=== PATIENT | female | born 1995 | race African-American/Black ===

== ENCOUNTER 2021-07-26 03:20 | Emergency (ER) | payer MEDICAID ==
[~2021-07-26] VITALS: Ht 167.6 cm; Wt 75.0 kg
[2021-07-26 04:06] LABS: BASOPHILS % 0.9 % (0.0-2.0); EOSINOPHILS % 4.1 % (0.0-5.0); HEMATOCRIT. 37.5 % (36.0-48.0); LYMPHOCYTES % 15.1 % (20.0-50.0); MEAN CORPUSCULAR HEMOGLOBIN 31.7 pg (28.0-32.0); MEAN CORPUSCULAR VOLUME 91.6 fL (81.0-99.0); MEAN PLATELET VOLUME 11.5 fl (7.4-10.4); MONOCYTES % 7.6 % (2.0-8.0); NEUTROPHILS % 72.3 % (40.0-76.0); PLATELET 165 x1000/uL (130-400); RED BLOOD CELL COUNT 4.09 mill/uL (4.2-5.4); RED CELL DISTRIBUTION WIDTH 14.2 % (11.6-14.6)
[2021-07-26 04:13] LABS: CHLORIDE 103 mEq/L (98-107)
[2021-07-26 04:18] LABS: ETHANOL BLOOD < 10 mg/dL
[2021-07-26 04:22] LABS: CREATINE KINASE 78 IU/L (26-192)
[2021-07-26 04:44] LABS: CLARITY URINE CLOUDY (CLEAR); COLOR URINE YELLOW (YELLOW); KETONES URINE NEGATIVE (NEGATIVE); LEUKOCYTE ESTERASE URINE NEGATIVE (NEGATIVE); NITRITE URINE NEGATIVE (NEGATIVE); OCCULT BLOOD URINE NEGATIVE (NEGATIVE); PH URINE 6.5 (4.5-8.0); PROTEIN URINE TRACE (NEGATIVE); SPECIFIC GRAVITY URINE 1.026 (1.005-1.030)
[2021-07-26 05:00] LABS: *AMPHETAMINES SCREEN URINE NEGATIVE (NEGATIVE); *BARBITURATES SCREEN URINE NEGATIVE (NEGATIVE); *BENZODIAZEPINES SCREEN URINE NEGATIVE (NEGATIVE); *COCAINE SCREEN URINE NEGATIVE (NEGATIVE); PHENCYCLIDINE URINE SCREEN NEGATIVE (NEGATIVE)
[2021-07-26 05:01] LABS: CANNABINOID URINE SCREEN PRESUMTIVE POSITIVE (NEGATIVE); METHADONE URINE SCREEN NEGATIVE (NEGATIVE); OPIATES URINE SCREEN NEGATIVE (NEGATIVE)
[2021-07-26] MEDS ORDERED: GABAPENTIN 300MG CAPSULE PO NR (18:15)
[2021-07-26] MEDS: HYDROXYZINE 25MG TABLET PO SCH (22:42)
[2021-07-26] MEDS: TRAZODONE HCL 50MG TABLET PO SCH (23:47)
[2021-07-27] MEDS ORDERED: CEFTRIAXONE SODIUM 500 MG/VIAL IM ONE (09:15)
[2021-07-27] MEDS ORDERED: AZITHROMYCIN 500 MG TABLET PO ONE (09:15)
[2021-07-27] MEDS: HYDROXYZINE 25MG TABLET PO SCH ×3 (11:15→17:18)
[2021-07-27] MEDS ORDERED: GABAPENTIN 300MG CAPSULE PO SCH (14:00)
[2021-07-27] MEDS: TRAZODONE HCL 50MG TABLET PO SCH (22:55)
[2021-07-27 23:00] VITALS: BP 112/58
== END 2021-07-27 23:01 | disposition home or self-care (01) ==
LOC: ER 03:20
DX: R45.851 Suicidal ideations (principal); J45.909 Unspecified asthma, uncomplicated; F12.10 Cannabis abuse, uncomplicated; R00.0 Tachycardia, unspecified
CPT/HCPCS: 36415; 80053; 80305; 80307; 80320; 80329; 81003; 82140; 82550; 83690; 85025; 93005; 96372; 99285; J0696; G0480